=== PATIENT | female | born 1995 | race Caucasian/White ===

== ENCOUNTER 2017-04-23 16:58 | Emergency (ER) | payer SELFPAY ==
[~2017-04-23] VITALS: Ht 157.4 cm; Wt 95.3 kg
== END 2017-04-23 19:04 | disposition home or self-care (01) ==
LOC: ED 16:58
DX: M25.561 Pain in right knee (principal)

== ENCOUNTER 2018-12-20 15:14 | Emergency (ER) | payer OTHER ==
[~2018-12-20] VITALS: Ht 157.4 cm; Wt 95.7 kg
[2018-12-20] MEDS ORDERED: CEPHALEXIN500 M1 PO (16:00)
[2018-12-20] MEDS ORDERED: IBU800 MG PO (16:00)
[2018-12-20] MEDS ORDERED: ANTIBIOTIC28.4 GM T (16:00)
== END 2018-12-20 16:29 | disposition home or self-care (01) ==
LOC: ED 15:14
DX: T24.201A Burn of second degree of unspecified site of right lower limb, except ankle and foot, initial encounter (principal); T31.0 Burns involving less than 10% of body surface; W40.1XXA Explosion of explosive gases, initial encounter; Y93.89 Activity, other specified; Y92.89 Other specified places as the place of occurrence of the external cause; Y99.8 Other external cause status

== ENCOUNTER 2019-07-23 23:17 | Emergency (ER) | payer OTHER ==
[~2019-07-23] VITALS: Ht 160 cm; Wt 99.3 kg
[~2019-07-23 23:17] MED LIST: ANTIBIOTIC28.4 GM T; CEPHALEXIN500 M1 PO; IBU800 MG PO
[2019-07-24] MEDS ORDERED: PREDNISONE10 MG PO (00:08)
[2019-07-24] MEDS ORDERED: PROAIR HFA8.5 GM INH (00:08)
== END 2019-07-24 00:32 | disposition home or self-care (01) ==
LOC: ED 23:17
DX: J45.909 Unspecified asthma, uncomplicated (principal)

== ENCOUNTER 2022-11-16 14:01 | Emergency (ER) | payer OTHER ==
[~2022-11-16] VITALS: Ht 160 cm; Wt 113.4 kg
[~2022-11-16 14:01] MED LIST changes: +PREDNISONE10 MG PO; +PROAIR HFA8.5 GM INH
[2022-11-16] MEDS ORDERED: VIBRA-TAB100 MG PO (15:33)
[2022-11-16] MEDS ORDERED: PROVENTIL HFA6.7 GM PO (15:38)
== END 2022-11-16 15:48 | disposition home or self-care (01) ==
LOC: ED 14:01
DX: J32.9 Chronic sinusitis, unspecified (principal)